=== PATIENT | female | born 1975 | race Caucasian/White ===

== ENCOUNTER 2021-07-11 10:49 | Observation (INO) ==
[2021-07-11] MEDS ORDERED: ONDANSETRON INJ 2 MG/ML 2 ML VIAL IV STA (11:17)
[2021-07-11] MEDS ORDERED: ACETAMINOPHEN 1,000 MG/100 ML VIAL IV STA (11:17)
[2021-07-11] MEDS ORDERED: SODIUM CHLORIDE 0.9% 1000ML 1,000 ML IV ONE (11:17)
--- NOTE | 2021-07-11 11:25 | Emergency Department Note ---
Impression & Plan Speech abnormality, Stroke-like symptoms, UTI (urinary tract infection) ED Provider Note NAME: RACHEL SCHERER AGE: 46 SEX: F : 1975 ARRIVES VIA: Ambulance INFORMANT: [Patient][ems] ED PROVIDER(S): [Hao Stearns MD] CHIEF COMPLAINT: Confusion HISTORY OF PRESENT ILLNESS: The patient is a 46-year-old female who presents by EMS for some confusion and difficulty finding her words. This started yesterday. She also noticed yesterday that she could not write properly. She is not slurring her speech, no one-sided weakness. She felt fatigue yesterday and some lower back pain as well as a mild headache. She went and had a Covid test done, this was negative. Today, she felt pretty similar but tried to go to work. 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 The patient has no history of previous similar symptoms. She has not had cough or congestion. No vomiting or diarrhea. No urinary complaints. She complains of very mild headache right now and some mild nausea as well as fatigue. REVIEW OF SYSTEMS: See HPI for pertinent positives and negatives. A total of ten systems were reviewed and were otherwise negative. PMHx/PSHx: See Below SOCIAL HISTORY: See Below. PHYSICAL EXAM: GENERAL: Patient is in no acute distress. HEENT: No acute trauma, normocephalic atraumatic, mucous membranes moist, no nasal congestion, no scleral icterus. NECK: No stridor, no adenopathy, no meningismus, trachea is midline. LUNGS: Clear to auscultation bilaterally, no wheeze, no rhonchi, breath sounds equal. HEART: Without murmurs gallops or rubs, regular rate and rhythm. ABDOMEN: Soft, nontender, bowel sounds positive, no hernias, no peritonitis. EXTREMITIES: No cyanosis or edema, full range of motion of all the joints without pain or difficulty, no signs for acute trauma. NEUROLOGIC: Awake and alert, no speech slur. She does seem to have a little bit of difficulty finding her words. No extremity drift or cerebellar dysfunction. Follows commands well. SKIN: No rash, no jaundice, no diaphoresis. DIFFERENTIAL DIAGNOSIS: Infection, dehydration, metabolic abnormality, medication reaction, drug abuse, liver or renal failure, COVID-19, hypo/hyperglycemia, electrolyte disturbance, anemia, hypoxia, cardiac sources, intracerebral event, toxicologic issues, stroke, TIA, as well as other pathologies. EMERGENCY DEPARTMENT COURSE/PROCEDURES: ECG: Indication was weakness. The ECG shows a normal sinus rhythm with a rate of 89. LVH is present. There is no ST elevation, no PVCs. There is some nonspecific ST change. The QTc is 428. Continuous Cardiac Monitoring: An order was placed for continuous cardiac monitoring. The monitor shows a rate of 93 with normal sinus rhythm. Critical Care Note: I have personally spent 41 minutes of critical care time in the direct management of this patient. This includes bedside care, interpretation of diagnostic studies, and testing, discussion with consultants, patient, and family members, and other required patient management activities. This 41 minutes is in excess of all separately billable procedures. MEDICAL DECISION MAKING: There is no leukocytosis or concerning anemia. There is a normal platelet count. No coagulopathy. No significant electrolyte abnormality or kidney failure. No concerning liver enzyme elevation. Ammonia level was not elevated. ECG shows a sinus rhythm, no acute ischemia. Cardiac enzyme testing x1 is not consistent with acute cardiac injury. Urinalysis returned consistent with infection. Urine tox was negative. Alcohol level was undetectable. Covid testing was negative. Chest film did not show pneumonia or CHF. Brain CT showed no acute bleed or mass-effect. CT angio of the brain and neck did not show stenosis or clot. On exam, the patient was having a hard time finding her words. No speech slur. No extremity deficit. The patient presented with strokelike symptoms. She was aggressively managed. A stroke work up was performed. The patient remains basically the same as when she arrived. At times, she speaks well, at times, she has a hard time finding her words. Her is now at the bedside and states that he noticed this trouble yesterday and then again today and this is quite unlike her. I did give the patient IV ceftriaxone to treat the UTI. I suppose this could be at least partly responsible for her presentation. She received IV saline for hydration, IV Zofran for nausea. She received IV Tylenol for her mild headache. The patient is aware of her findings, case management has been involved. The on-call hospitalist was consulted. Past Med/Surg History Medical History HTN (hypertension) As a child, currently not on any antihypertensives Migraines Surgical History History of tonsillectomy Family History (Updated 07/11/21 @ 15:27 by SHANTHI Hough) Aunt Uterine cancer Social History Smoking Status: Never smoker Feels Safe at Home: Yes Allergies Allergies Allergy/AdvReac Type Severity Reaction Status Date / Time No Known Allergies Allergy Unverified 07/11/21 12:31 Home Meds Home Medications Medication Instructions Recorded Confirmed No Known Home Medications 07/11/21 07/11/21 Results & Data (ED) Vital Signs Vital Signs - 24 hr 07/11/21 10:56 07/11/21 12:26 07/11/21 12:30 Temperature 37.0 C Temperature Source Oral Pulse Rate 93 H 79 80 Pulse Rate from SpO2 Sensor 78 80 Pulse Rhythm Regular Pulse Strength Normal Respiratory Rate 17 21 22 Respiratory Effort / Characteristics Non-Labored Respiratory Depth Normal Respiratory Pattern Regular Blood Pressure 136/85 131/77 131/77 Blood Pressure Mean 102 95 95 Blood Pressure Position Sitting Pulse Oximetry 99 97 98 Oxygen Delivery Method Room Air Room Air Room Air Oxygen Flow Rate 99 Sepsis Recent Fever Within 48 Hours No Sepsis New/Unexplained Change in Mental Status N/A Sepsis Action Taken by Nursing No Action Required 07/11/21 12:45 07/11/21 13:11 07/11/21 13:15 Temperature Temperature Source Pulse Rate 79 79 81 Pulse Rate from SpO2 Sensor 80 Pulse Rhythm Pulse Strength Respiratory Rate 23 22 25 H Respiratory Effort / Characteristics Respiratory Depth Respiratory Pattern Blood Pressure 117/65 124/76 Blood Pressure Mean 82 92 Blood Pressure Position Pulse Oximetry 99 99 100 Oxygen Delivery Method Room Air Room Air Room Air Oxygen Flow Rate Sepsis Recent Fever Within 48 Hours Sepsis New/Unexplained Change in Mental Status Sepsis Action Taken by Nursing 07/11/21 13:30 07/11/21 13:45 07/11/21 14:00 Temperature Temperature Source Pulse Rate 73 74 84 Pulse Rate from SpO2 Sensor 75 75 85 Pulse Rhythm Pulse Strength Respiratory Rate 22 15 26 H Respiratory Effort / Characteristics Respiratory Depth Respiratory Pattern Blood Pressure 117/70 Blood Pressure Mean 85 Blood Pressure Position Pulse Oximetry 99 99 98 Oxygen Delivery Method Room Air Room Air Room Air Oxygen Flow Rate Sepsis Recent Fever Within 48 Hours Sepsis New/Unexplained Change in Mental Status Sepsis Action Taken by Nursing 07/11/21 14:30 Temperature Temperature Source Pulse Rate 77 Pulse Rate from SpO2 Sensor 78 Pulse Rhythm Pulse Strength Respiratory Rate 19 Respiratory Effort / Characteristics Respiratory Depth Respiratory Pattern Blood Pressure 112/81 Blood Pressure Mean 91 Blood Pressure Position Pulse Oximetry 100 Oxygen Delivery Method Room Air Oxygen Flow Rate Sepsis Recent Fever Within 48 Hours Sepsis New/Unexplained Change in Mental Status Sepsis Action Taken by Assisted Medications Current Medication List: was personally reviewed by me Laboratory Data Attestation: I reviewed the patient's lab results. Result diagrams: 07/11/21 11:25 07/11/21 11:25 Lab Results 07/11/21 07/11/21 07/11/21 Range/Units 11:21 11:24 11:25 WBC (4.8-10.8) K/uL RBC (4.2-5.4) M/uL Hgb (12.0-16.0) g/dL Hct (37-47) % MCV (80-100) fL MCH (25-34) pg MCHC (32-36) g/dL RDW Std Deviation (36.4-46.3) fL RDW Coeff of Kamille (11.5-14.5) % Plt Count (130-400) K/uL MPV (7.4-10.4) fL Immature Gran % (Auto) % Neut % (Auto) % Lymph % (Auto) % [place] % (Auto) % Eos % (Auto) % Baso % (Auto) % Neut # (Auto) (1.4-6.5) K/uL Lymph # (Auto) (1.2-3.4) K/uL [place] # (Auto) (0.11-0.59) K/uL Eos # (Auto) (0-0.5) K/uL Baso # (Auto) (0-0.2) K/uL Immature Gran # (Auto) (0.00-0.02) K/uL PT (9.0-12.0) Seconds INR (0.9-1.1) APTT (21.0-31.0) Seconds PTT Ratio Sodium (136-145) mmol/L Potassium (3.5-5.1) mmol/L Chloride (98-107) mmol/L Carbon Dioxide (21-32) mmol/L Anion Gap (3-11) BUN (7-18) mg/dl Creatinine (0.6-1.2) mg/dl Est Cr Clr Drug Dosing ml/min Est GFR ( Amer) ml/min Est GFR (Non-Af Amer) ml/min BUN/Creatinine Ratio (10-20) Glucose (70-99) mg/dl POC Glucose 87 (70-99) mg/dl Lactate 0.6 (0.4-2.0) mmol/L Calcium (8.5-10.1) mg/dl Magnesium (1.8-2.4) mg/dl Total Bilirubin (0.2-1) mg/dl AST (15-37) U/L ALT (12-78) U/L Alkaline Phosphatase (45-117) U/L Ammonia (11-32) umol/L Troponin I (0-0.045) ng/ml Total Protein (6.4-8.2) gm/dl Albumin (3.4-5.0) gm/dl Globulin (2.5-4.0) gm/dl Albumin/Globulin Ratio (0.9-2) Urine Color Urine Appearance (Clear) Urine pH (4.5-7.5) Ur Specific [place] (1.000-1.030) Urine Protein (Negative) Urine Glucose (UA) (Negative) Urine Ketones (Negative) Urine Blood (Negative) Urine Nitrite (Negative) Urine Bilirubin (Negative) Urine Urobilinogen (Negative) Ur Leukocyte Esterase (Negative) Urine WBC (Auto) (0-5) /hpf Urine RBC (Auto) (0-4) /hpf U Hyaline Cast (Auto) (0-5) /lpf U Epithel Cells (Auto) (0-5) /lpf Urine Bacteria (Auto) (Negative) Granular Casts (0) /lpf Urine Opiates Screen (Neg) Ur Methadone, Qual (Neg) Urine Barbiturates (Neg) Ur Phencyclidine (PCP) (Neg) U Amphetamin/Meth Scrn (Neg) MDMA (Ecstasy) Screen (Neg) U Benzodiazepines Scrn (Neg) Ur Cocaine Metabolite (Neg) U Marijuana (THC) Screen (Neg) Ethyl Alcohol mg/dL < 3.0 (0-3) mg/dl COVID-19 Eval Order SARS-CoV-2 (PCR) (Negative) 07/11/21 07/11/21 07/11/21 Range/Units 11:25 11:25 11:25 WBC 8.07 (4.8-10.8) K/uL RBC 4.39 (4.2-5.4) M/uL Hgb 12.4 (12.0-16.0) g/dL Hct 37.6 (37-47) % MCV 85.6 (80-100) fL MCH 28.2 (25-34) pg MCHC 33.0 (32-36) g/dL RDW Std Deviation 42.6 (36.4-46.3) fL RDW Coeff of Kamille 13.5 (11.5-14.5) % Plt Count 387 (130-400) K/uL MPV 9.1 (7.4-10.4) fL Immature Gran % (Auto) 0.2 % Neut % (Auto) 70.5 % Lymph % (Auto) 22.1 % [place] % (Auto) 4.7 % Eos % (Auto) 2.4 % Baso % (Auto) 0.1 % Neut # (Auto) 5.69 (1.4-6.5) K/uL Lymph # (Auto) 1.78 (1.2-3.4) K/uL [place] # (Auto) 0.38 (0.11-0.59) K/uL Eos # (Auto) 0.19 (0-0.5) K/uL Baso # (Auto) 0.01 (0-0.2) K/uL Immature Gran # (Auto) 0.02 (0.00-0.02) K/uL PT 10.4 (9.0-12.0) Seconds INR 1.0 (0.9-1.1) APTT 26.1 (21.0-31.0) Seconds PTT Ratio 1.0 Sodium (136-145) mmol/L Potassium (3.5-5.1) mmol/L Chloride (98-107) mmol/L Carbon Dioxide (21-32) mmol/L Anion Gap (3-11) BUN (7-18) mg/dl Creatinine (0.6-1.2) mg/dl Est Cr Clr Drug Dosing ml/min Est GFR ( Amer) ml/min Est GFR (Non-Af Amer) ml/min BUN/Creatinine Ratio (10-20) Glucose (70-99) mg/dl POC Glucose (70-99) mg/dl Lactate (0.4-2.0) mmol/L Calcium (8.5-10.1) mg/dl Magnesium (1.8-2.4) mg/dl Total Bilirubin (0.2-1) mg/dl AST (15-37) U/L ALT (12-78) U/L Alkaline Phosphatase (45-117) U/L Ammonia 14.0 (11-32) umol/L Troponin I (0-0.045) ng/ml Total Protein (6.4-8.2) gm/dl Albumin (3.4-5.0) gm/dl Globulin (2.5-4.0) gm/dl Albumin/Globulin Ratio (0.9-2) Urine Color Urine Appearance (Clear) Urine pH (4.5-7.5) Ur Specific [place] (1.000-1.030) Urine Protein (Negative) Urine Glucose (UA) (Negative) Urine Ketones (Negative) Urine Blood (Negative) Urine Nitrite (Negative) Urine Bilirubin (Negative) Urine Urobilinogen (Negative) Ur Leukocyte Esterase (Negative) Urine WBC (Auto) (0-5) /hpf Urine RBC (Auto) (0-4) /hpf U Hyaline Cast (Auto) (0-5) /lpf U Epithel Cells (Auto) (0-5) /lpf Urine Bacteria (Auto) (Negative) Granular Casts (0) /lpf Urine Opiates Screen (Neg) Ur Methadone, Qual (Neg) Urine Barbiturates (Neg) Ur Phencyclidine (PCP) (Neg) U Amphetamin/Meth Scrn (Neg) MDMA (Ecstasy) Screen (Neg) U Benzodiazepines Scrn (Neg) Ur Cocaine Metabolite (Neg) U Marijuana (THC) Screen (Neg) Ethyl Alcohol mg/dL (0-3) mg/dl COVID-19 Eval Order SARS-CoV-2 (PCR) (Negative) 07/11/21 07/11/21 07/11/21 Range/Units 11:25 11:44 11:44 WBC (4.8-10.8) K/uL RBC (4.2-5.4) M/uL Hgb (12.0-16.0) g/dL Hct (37-47) % MCV (80-100) fL MCH (25-34) pg MCHC (32-36) g/dL RDW Std Deviation (36.4-46.3) fL RDW Coeff of Kamille (11.5-14.5) % Plt Count (130-400) K/uL MPV (7.4-10.4) fL Immature Gran % (Auto) % Neut % (Auto) % Lymph % (Auto) % [place] % (Auto) % Eos % (Auto) % Baso % (Auto) % Neut # (Auto) (1.4-6.5) K/uL Lymph # (Auto) (1.2-3.4) K/uL [place] # (Auto) (0.11-0.59) K/uL Eos # (Auto) (0-0.5) K/uL Baso # (Auto) (0-0.2) K/uL Immature Gran # (Auto) (0.00-0.02) K/uL PT (9.0-12.0) Seconds INR (0.9-1.1) APTT (21.0-31.0) Seconds PTT Ratio Sodium 139 (136-145) mmol/L Potassium 3.6 (3.5-5.1) mmol/L Chloride 109 H (98-107) mmol/L Carbon Dioxide 25 (21-32) mmol/L Anion Gap 5.0 (3-11) BUN 8 (7-18) mg/dl Creatinine 0.60 (0.6-1.2) mg/dl Est Cr Clr Drug Dosing 185.0 ml/min Est GFR ( Amer) 128.5 ml/min Est GFR (Non-Af Amer) 110.9 ml/min BUN/Creatinine Ratio 12.9 (10-20) Glucose 88 (70-99) mg/dl POC Glucose (70-99) mg/dl Lactate (0.4-2.0) mmol/L Calcium 8.8 (8.5-10.1) mg/dl Magnesium 2.0 (1.8-2.4) mg/dl Total Bilirubin 0.4 (0.2-1) mg/dl AST 16 (15-37) U/L ALT 17 (12-78) U/L Alkaline Phosphatase 84 (45-117) U/L Ammonia (11-32) umol/L Troponin I < 0.015 (0-0.045) ng/ml Total Protein 7.9 (6.4-8.2) gm/dl Albumin 3.3 L (3.4-5.0) gm/dl Globulin 4.6 H (2.5-4.0) gm/dl Albumin/Globulin Ratio 0.7 L (0.9-2) Urine Color Dark Yellow Urine Appearance Cloudy A (Clear) Urine pH 5.5 (4.5-7.5) Ur Specific [place] 1.033 H (1.000-1.030) Urine Protein Trace H (Negative) Urine Glucose (UA) Negative (Negative) Urine Ketones 1+ H (Negative) Urine Blood Negative (Negative) Urine Nitrite Negative (Negative) Urine Bilirubin 1+ H (Negative) Urine Urobilinogen Negative (Negative) Ur Leukocyte Esterase 2+ H (Negative) Urine WBC (Auto) >30 H (0-5) /hpf Urine RBC (Auto) 0-4 (0-4) /hpf U Hyaline Cast (Auto) 10-30 H (0-5) /lpf U Epithel Cells (Auto) >30 H (0-5) /lpf Urine Bacteria (Auto) 3+ H (Negative) Granular Casts 1-5 H (0) /lpf Urine Opiates Screen (Neg) Ur Methadone, Qual (Neg) Urine Barbiturates (Neg) Ur Phencyclidine (PCP) (Neg) U Amphetamin/Meth Scrn (Neg) MDMA (Ecstasy) Screen (Neg) U Benzodiazepines Scrn (Neg) Ur Cocaine Metabolite (Neg) U Marijuana (THC) Screen (Neg) Ethyl Alcohol mg/dL (0-3) mg/dl COVID-19 Eval Order Covid19 at [facility] SARS-CoV-2 (PCR) (Negative) 07/11/21 07/11/21 Range/Units 11:44 11:44 WBC (4.8-10.8) K/uL RBC (4.2-5.4) M/uL Hgb (12.0-16.0) g/dL Hct (37-47) % MCV (80-100) fL MCH (25-34) pg MCHC (32-36) g/dL RDW Std Deviation (36.4-46.3) fL RDW Coeff of Kamille (11.5-14.5) % Plt Count (130-400) K/uL MPV (7.4-10.4) fL Immature Gran % (Auto) % Neut % (Auto) % Lymph % (Auto) % [place] % (Auto) % Eos % (Auto) % Baso % (Auto) % Neut # (Auto) (1.4-6.5) K/uL Lymph # (Auto) (1.2-3.4) K/uL [place] # (Auto) (0.11-0.59) K/uL Eos # (Auto) (0-0.5) K/uL Baso # (Auto) (0-0.2) K/uL Immature Gran # (Auto) (0.00-0.02) K/uL PT (9.0-12.0) Seconds INR (0.9-1.1) APTT (21.0-31.0) Seconds PTT Ratio Sodium (136-145) mmol/L Potassium (3.5-5.1) mmol/L Chloride (98-107) mmol/L Carbon Dioxide (21-32) mmol/L Anion Gap (3-11) BUN (7-18) mg/dl Creatinine (0.6-1.2) mg/dl Est Cr Clr Drug Dosing ml/min Est GFR ( Amer) ml/min Est GFR (Non-Af Amer) ml/min BUN/Creatinine Ratio (10-20) Glucose (70-99) mg/dl POC Glucose (70-99) mg/dl Lactate (0.4-2.0) mmol/L Calcium (8.5-10.1) mg/dl Magnesium (1.8-2.4) mg/dl Total Bilirubin (0.2-1) mg/dl AST (15-37) U/L ALT (12-78) U/L Alkaline Phosphatase (45-117) U/L Ammonia (11-32) umol/L Troponin I (0-0.045) ng/ml Total Protein (6.4-8.2) gm/dl Albumin (3.4-5.0) gm/dl Globulin (2.5-4.0) gm/dl Albumin/Globulin Ratio (0.9-2) Urine Color Urine Appearance (Clear) Urine pH (4.5-7.5) Ur Specific [place] (1.000-1.030) Urine Protein (Negative) Urine Glucose (UA) (Negative) Urine Ketones (Negative) Urine Blood (Negative) Urine Nitrite (Negative) Urine Bilirubin (Negative) Urine Urobilinogen (Negative) Ur Leukocyte Esterase (Negative) Urine WBC (Auto) (0-5) /hpf Urine RBC (Auto) (0-4) /hpf U Hyaline Cast (Auto) (0-5) /lpf U Epithel Cells (Auto) (0-5) /lpf Urine Bacteria (Auto) (Negative) Granular Casts (0) /lpf Urine Opiates Screen Neg (Neg) Ur Methadone, Qual Neg (Neg) Urine Barbiturates Neg (Neg) Ur Phencyclidine (PCP) Neg (Neg) U Amphetamin/Meth Scrn Neg (Neg) MDMA (Ecstasy) Screen Neg (Neg) U Benzodiazepines Scrn Neg (Neg) Ur Cocaine Metabolite Neg (Neg) U Marijuana (THC) Screen Neg (Neg) Ethyl Alcohol mg/dL (0-3) mg/dl COVID-19 Eval Order SARS-CoV-2 (PCR) NEGATIVE (Negative) Administered Medications Discontinued Medications Aspirin (Aspirin Chew 324 Mg) 324 mg PO NOW STA Stop: 07/11/21 14:57 Last Admin: 07/11/21 15:10 Dose: 324 mg Documented by: [id number] Sodium Chloride (Nss 1000ml) 1,000 mls @ 999 mls/hr IV .[id number] ONE Stop: 07/11/21 12:17 Last Infusion: 07/11/21 12:40 Dose: 0 mls/hr Documented by: [id number] Admin: 07/11/21 11:39 Dose: 999 mls/hr Documented by: [id number] Acetaminophen (Ofirmev) 1,000 mg in 100 mls @ 400 mls/hr IV NOW STA Stop: 07/11/21 11:31 Last Infusion: 07/11/21 12:29 Dose: 0 mls/hr Documented by: [id number] Admin: 07/11/21 11:40 Dose: 400 mls/hr Documented by: [id number] Ceftriaxone Sodium (Rocephin) 2,000 mg in 70 mls @ 140 mls/hr IV NOW STA Stop: 07/11/21 13:09 Last Infusion: 07/11/21 13:16 Dose: 0 mls/hr Documented by: [id number] Admin: 07/11/21 12:53 Dose: 140 mls/hr Documented by: [id number] Ioversol (Optiray 320 125ml) 120 ml IV ONCE ONE Stop: 07/11/21 13:03 Last Admin: 07/11/21 13:02 Dose: 120 ml Documented by: [id number] Ondansetron HCl (Ondansetron Inj 2 Mg/Ml 2 Ml Vial) 4 mg IV NOW STA Stop: 07/11/21 11:18 Last Admin: 07/11/21 11:41 Dose: 4 mg Documented by: [id number] Imaging Data Radiologist's Impression: Chest X-Ray 07/11/21 11:20 XR chest 1V portable HISTORY: 46 years-old Female Stroke Like Symptoms acute strokelike symptoms COMPARISON: None TECHNIQUE: Portable AP view of the chest FINDINGS: The cardiomediastinal and hilar silhouettes are within normal limits. No pneumothorax, pleural effusion, airspace consolidation or overt pulmonary edema. No acute fracture. IMPRESSION: No acute process. ACT 112: Negative or not required by law. The above report was generated using voice recognition software. It may contain grammatical, syntax or spelling errors. Electronically signed by: Clark Monique M.D. 07/11/2021 12:[address] 07/11/21 11:20 CT head/brain wo con CLINICAL HISTORY: 46 years-old Female with Stroke Like Symptoms. Acute s trokelike symptoms TECHNIQUE: Multiple axial CT images of the head were obtained without contrast. A dose lowering technique was utilized adhering to the principles of ALARA. COMPARISON: CTA head and neck of same day. FINDINGS: No acute intracranial hemorrhage, midline shift, intracranial mass, hydrocephalus, territorial ischemia or abnormal extra-axial collection. The calvarium is intact. The paranasal sinuses, mastoid air cells, and middle ear cavities are clear. IMPRESSION: No acute intracranial abnormality. ACT 112: Negative or not required by law. The above report was generated using voice recognition software. It may contain grammatical, syntax or spelling errors. Electronically signed by: Clark Monique M.D. 07/11/2021 1:17 PM Head CTA 07/11/21 11:20 CT angio neck with con, CT angio head w con CLINICAL HISTORY: Stroke Like Symptoms TECHNIQUE: CT angiography of the head and neck was performed following intravenous administration of iodinated contrast. Automated dose lowering techniques and/or adjustment according to patient size were utilized for this examination. Comparison: Comparison is made to CT head 07/11/2021 FINDINGS: CTA Neck: A 3 vessel aortic arch is shown. There is no significant atherosclerotic plaque in the aortic arch or the origins of the innominate, left common carotid, and left subclavian arteries. There is no atherosclerotic plaque at the origins of the vertebral arteries. The common carotid, external carotid, cervical segments of the internal carotid arteries, and the cervical segments of the vertebral arteries are patent. There is no hemodynamically significant diameter stenosis or dissection present. The right vertebral artery is dominant. The thyroid is prominent without suspicious nodules noted. The lungs are clear. CTA Head: The anterior and posterior cerebral circulations are patent. No hemodynamically significant stenosis, aneurysm, dissection, or arteriovenous malformation is shown. Atherosclerotic disease is noted. IMPRESSION: 1. No occlusion, hemodynamically significant stenosis, aneurysm, dissection, or arteriovenous malformation in the major intracranial arteries. 2. No occlusion, hemodynamically significant stenosis, or dissection in the major cervical arteries. Assessment of stenosis of the internal carotid arteries is based on NASCET criteria. ACT 112: Negative or not required by law. Electronically signed by: Reginald Hull M.D. 07/11/2021 1:18 PM Neck CTA 07/11/21 11:20 CT angio neck with con, CT angio head w con CLINICAL HISTORY: Stroke Like Symptoms TECHNIQUE: CT angiography of the head and neck was performed following intravenous administration of iodinated contrast. Automated dose lowering techniques and/or adjustment according to patient size were utilized for this examination. Comparison: Comparison is made to CT head 07/11/2021 FINDINGS: CTA Neck: A 3 vessel aortic arch is shown. There is no significant atherosclerotic plaque in the aortic arch or the origins of the innominate, left common carotid, and left subclavian arteries. There is no atherosclerotic plaque at the origins of the vertebral arteries. The common carotid, external carotid, cervical segments of the internal carotid arteries, and the cervical se gments of the vertebral arteries are patent. There is no hemodynamically significant diameter stenosis or dissection present. The right vertebral artery is dominant. The thyroid is prominent without suspicious nodules noted. The lungs are clear. CTA Head: The anterior and posterior cerebral circulations are patent. No hemodynamically significant stenosis, aneurysm, dissection, or arteriovenous malformation is shown. Atherosclerotic disease is noted. IMPRESSION: 1. No occlusion, hemodynamically significant stenosis, aneurysm, dissection, or arteriovenous malformation in the major intracranial arteries. 2. No occlusion, hemodynamically significant stenosis, or dissection in the major cervical arteries. Assessment of stenosis of the internal carotid arteries is based on NASCET crite madhuri. ACT 112: Negative or not required by law. Electronically signed by: Reginald Hull M.D. 07/11/2021 1:18 PM Discharge Plan Visit Data Chief Complaint: Confusion Stated Complaint: CONFUSION ED Provider: Hao Stearns Discharge Problem: Speech abnormality, Stroke-like symptoms, UTI (urinary tract infection) Patient Disposition: Admitted As Inpatient Condition: Fair
[2021-07-11 11:40] LABS: Basophils # (auto) 0.01 K/uL (0-0.2); Basophils % (auto) 0.1 %; Eosinophils # (auto) 0.19 K/uL (0-0.5); Eosinophils % (auto) 2.4 %; Hematocrit (blood only) 37.6 % (37-47); Hemoglobin 12.4 g/dL (12.0-16.0); Immature Granulocytes # (auto) 0.02 K/uL (0.00-0.02); Immature Granulocytes % (auto) 0.2 %; Lymphocytes # (auto) 1.78 K/uL (1.2-3.4); Lymphocytes % (auto) 22.1 %; Mean Corpuscular Hemoglobin 28.2 pg (25-34); Mean Corpuscular Volume 85.6 fL (80-100); Mean Platelet Volume 9.1 fL (7.4-10.4); Monocytes # (auto) 0.38 K/uL (0.11-0.59); Monocytes % (auto) 4.7 %; Neutrophils # (auto) 5.69 K/uL (1.4-6.5); Neutrophils % (auto) 70.5 %; Platelet Count 387 K/uL (130-400); RDW Coefficient of Variation 13.5 % (11.5-14.5); RDW Standard Deviation 42.6 fL (36.4-46.3); Red Blood Count 4.39 M/uL (4.2-5.4); White Blood Count 8.07 K/uL (4.8-10.8)
[2021-07-11 11:51] LABS: Partial Thromboplastin Time 26.1 Seconds (21.0-31.0); Prothrombin Time 10.4 Seconds (9.0-12.0)
[2021-07-11 12:00] LABS: Appearance Urine Cloudy (Clear); Bacteria Urine Automated 3+ (Negative); Blood Urine Negative (Negative); Color Urine Dark Yellow; Epithelial Cell Urine Auto >30 /lpf (0-5); Glucose Urine UA Negative (Negative); Ketones Urine 1+ (Negative); Leukocyte Esterase Urine 2+ (Negative); Nitrite Urine Negative (Negative); Protein Urine Trace (Negative); Specific Gravity Urine 1.033 (1.000-1.030); Urobilinogen Urine Negative (Negative); WBC Urine Automated >30 /hpf (0-5); pH Urine 5.5 (4.5-7.5)
[2021-07-11 12:02] LABS: Bilirubin Urine 1+ (Negative)
[2021-07-11 12:06] LABS: Alanine Aminotransferase 17 U/L (12-78); Albumin Level 3.3 gm/dl (3.4-5.0); Aspartate Aminotransferase 16 U/L (15-37); BUN Creatinine Ratio 12.9 (10-20); Blood Urea Nitrogen 8 mg/dl (7-18); Calcium 8.8 mg/dl (8.5-10.1); Carbon Dioxide 25 mmol/L (21-32); Chloride 109 mmol/L (98-107); Est GFR (African American) 128.5 ml/min; Est GFR (Non-African American) 110.9 ml/min; Glucose 88 mg/dl (70-99); Potassium 3.6 mmol/L (3.5-5.1); Sodium 139 mmol/L (136-145)
[2021-07-11 12:11] LABS: Albumin Globulin Ratio 0.7 (0.9-2); Alkaline Phosphatase 84 U/L (45-117); Bilirubin,Total 0.4 mg/dl (0.2-1); Globulin 4.6 gm/dl (2.5-4.0); Total Protein 7.9 gm/dl (6.4-8.2); Troponin I < 0.015 ng/ml (0-0.045)
[2021-07-11 12:17] LABS: RBC Urine Automated 0-4 /hpf (0-4)
--- NOTE | 2021-07-11 12:21 | XRay Report ---
XR chest 1V portable HISTORY: 46 years-old Female Stroke Like Symptoms acute strokelike symptoms COMPARISON: None TECHNIQUE: Portable AP view of the chest FINDINGS: The cardiomediastinal and hilar silhouettes are within normal limits. No pneumothorax, pleural effusi on, airspace consolidation or overt pulmonary edema. No acute fracture. IMPRESSION: No acute process. ACT 112: Negative or not required by law. The above report was generated using voice recognition software. It may contain grammatical, syntax o r spelling errors. Electronically signed by: Clark Monique M.D. 07/11/2021 12:20 PM
[2021-07-11 12:22] LABS: Amphetamines+Metham, Urine Neg (Neg); Barbiturates, Urine Neg (Neg); Benzodiazepine, Urine Neg (Neg); Cocaine, Urine Neg (Neg); MDMA (Ecstacy), Urine Neg (Neg); Methadone, Urine Neg (Neg); Opiate, Urine Neg (Neg); Phencyclidine, Urine Neg (Neg)
[2021-07-11] MEDS ORDERED: cefTRIAXone SODIUM 2,000 MG/70 ML BAG IV STA (12:40)
[2021-07-11] MEDS ORDERED: OPTIRAY 320 125ml IV ONE (13:02)
--- NOTE | 2021-07-11 13:18 | CT Scan Report ---
CT head/brain wo con CLINICAL HISTORY: 46 years-old Female with Stroke Like Symptoms. Acute strokelike symptoms TECHNIQUE: Multiple axial CT images of the head were obtained without contrast. A dose lowering tech nique was utilized adhering to the principles of ALARA. COMPARISON: CTA head and neck of same day. FINDINGS: No acute intracranial hemorrhage, midline shift, intracranial mass, hydrocephalus, territorial ischem ia or abnormal extra-axial collection. The calvarium is intact. The paranasal sinuses, mastoid air cells, and middle ear cavities are clear . IMPRESSION: No acute intracranial abnormality. ACT 112: Negative or not required by law. The above report was generated using voice recognition software. It may contain grammatical, syntax o r spelling errors. Electronically signed by: Clark Monique M.D. 07/11/2021 1:17 PM
--- NOTE | 2021-07-11 13:20 | CT Scan Report ---
CT angio neck with con, CT angio head w con CLINICAL HISTORY: Stroke Like Symptoms TECHNIQUE: CT angiography of the head and neck was performed following intravenous administration of iodinated contrast. Automated dose lowering techniques and/or adjustment according to patient size we re utilized for this examination. Comparison: Comparison is made to CT head 07/11/2021 FINDINGS: CTA Neck: A 3 vessel aortic arch is shown. There is no significant atherosclerotic plaque in the aor tic arch or the origins of the innominate, left common carotid, and left subclavian arteries. There is no atherosclerotic plaque at the origins of the vertebral arteries. The common carotid, external c arotid, cervical segments of the internal carotid arteries, and the cervical segments of the vertebra l arteries are patent. There is no hemodynamically significant diameter stenosis or dissection prese nt. The right vertebral artery is dominant. The thyroid is prominent without suspicious nodules noted . The lungs are clear. CTA Head: The anterior and posterior cerebral circulations are patent. No hemodynamically significan t stenosis, aneurysm, dissection, or arteriovenous malformation is shown. Atherosclerotic disease is noted. IMPRESSION: 1. No occlusion, hemodynamically significant stenosis, aneurysm, dissection, or arteriovenous malfor mation in the major intracranial arteries. 2. No occlusion, hemodynamically significant stenosis, or dissection in the major cervical arteries. Assessment of stenosis of the internal carotid arteries is based on NASCET criteria. ACT 112: Negative or not required by law. Electronically signed by: Reginald Hull M.D. 07/11/2021 1:18 PM
[2021-07-11] MEDS ORDERED: ASPIRIN CHEW 324 MG PO STA (14:56)
--- NOTE | 2021-07-11 15:27 | History & Physical Report ---
Date of Service July 11, 2021 Assessment & Plan (1) Expressive aphasia: Plan: -Admit to telemetry -Patient presenting from home with reports of difficulty speaking and writing sentences, symptoms began yesterday -In the ED, head CT, head and neck CTAs unremarkable -UA is suggestive of UTI however patient's presenting symptoms would be unusual for a UTI for someone her age -Brain MRI, echo -Full dose aspirin now, followed by ASA 81 mg daily; consider statin pending brain MRI results -May be due to complex migraine -Neurology consult, case discussed with Susana Tinoco PA-C (2) UTI (urinary tract infection): Plan: -Patient denies any urinary symptoms, may be asymptomatic bacteriuria -Afebrile, no leukocytosis -S/p ceftriaxone in the ED, will continue, follow culture (3) DVT prophylaxis: Plan: -SCDs History of Present Illness Chief Complaint: Difficulty speaking Primary Care Provider: NO PCP 46-year-old female with PMH migraines and other problems listed below who presents the ED for evaluation of difficulty speaking. History is somewhat difficult to obtain from patient due to current expressive aphasia. Symptoms began last evening when patient had difficulty finding her words. She also noted that she was having trouble writing out sentences. 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 Patient reports having a headache along the left side of her head. Reports this is a typical migraine pain for her. She denies blurred vision. No lightheadedness, dizziness, diaphoresis, syncopal events. She denies any unilateral weakness, numbness, tingling, facial droop. No fevers or chills. Denies abdominal pain, nausea, vomiting, diarrhea. No urinary symptoms. In the ED, head CT, head and neck CTAs are unremarkable. Labs unremarkable. UA is suggestive of UTI. Patient was given IV Tylenol, IV ceftriaxone, IV Zofran, IVF. Allergies Allergy/AdvReac Type Severity Reaction Status Date / Time No Known Allergies Allergy Unverified 07/11/21 12:31 Home Medications Medication Instructions Recorded Confirmed Type No Known Home Medications 07/11/21 07/11/21 History Past Med/Surg History Medical History HTN (hypertension) As a child, currently not on any antihypertensives Migraines Surgical History History of tonsillectomy Family History (Updated 07/11/21 @ 15:27 by SHANTHI Hough) Aunt Uterine cancer Social History Smoking Status: Unknown if ever smoked Hx Alcohol Use: No Hx Substance Use: No Beliefs That Will Affect Care: None Current Living Situation: Family Other Information That Helps Us Care for You: No Feels Safe at Home: Yes Safety Concerns: Feels Safe At This Time Assistive Devices: Glasses Review of Systems Review of Systems: ROS per HPI, all other systems reviewed and negative Physical Exam Constitutional: WD/WN, vitals as above Eyes: PERRL, conjunctivae normal, anicteric sclerae ENMT: external ear and nose normal, oropharynx normal Respiratory: normal respiratory effort, lungs clear to auscultation Cardiovascular: Rate/Rhythm: regular rate and regular rhythm Vessels: normal peripheral pulses Extremities: no edema Gastrointestinal (Abdomen): normal bowel sounds, soft, nontender, no hepatosplenomegaly Musculoskeletal: no cyanosis or clubbing, extremities motor strength 5/5 Skin: no rashes, warm and dry Neurologic: moves all extremities (Strength strong and equal throughout all extremities) and awake Speech / Cognition: + expressive aphasia Cranial Nerves: PERRL, EOM intact bilaterally and normal facial strength Coordination: + abnormal [id number] test (Mild difficulty with left upper extremity) Psychiatric: A+Ox3, euthymic affect Results & Data Results & Data ([facility]) Vital Signs (Past 12 Hours) Vital Signs Temp Pulse Resp BP Pulse Ox 07/11/21 14:30 77 19 112/81 100 07/11/21 14:00 84 26 H 98 07/11/21 13:45 74 15 99 07/11/21 13:30 73 22 117/70 99 07/11/21 13:15 81 25 H 124/76 100 07/11/21 13:11 79 22 117/65 99 07/11/21 12:45 79 23 99 07/11/21 12:30 80 22 131/77 98 07/11/21 12:26 79 21 131/77 97 07/11/21 10:56 37.0 C 93 H 17 136/85 99 Laboratory Results Short CBC 07/11/21 Range/Units 11:25 WBC 8.07 (4.8-10.8) K/uL Hgb 12.4 (12.0-16.0) g/dL Hct 37.6 (37-47) % Plt Count 387 (130-400) K/uL BMP 07/11/21 11:25 Sodium 139 Potassium 3.6 Chloride 109 H Carbon Dioxide 25 BUN 8 Creatinine 0.60 Glucose 88 Calcium 8.8 Cardiac Enzymes 07/11/21 Range/Units 11:25 Troponin I < 0.015 (0-0.045) ng/ml Liver Function 07/11/21 Range/Units 11:25 Total Bilirubin 0.4 (0.2-1) mg/dl AST 16 (15-37) U/L ALT 17 (12-78) U/L Alkaline Phosphatase 84 (45-117) U/L Albumin 3.3 L (3.4-5.0) gm/dl Urine 07/11/21 Range/Units 11:44 Urine Color Dark Yellow Urine Appearance Cloudy A (Clear) Urine pH 5.5 (4.5-7.5) Ur Specific [place] 1.033 H (1.000-1.030) Urine Protein Trace H (Negative) Urine Glucose (UA) Negative (Negative) Diagnostic Findings Chest X-Ray 07/11/21 11:20 XR chest 1V portable HISTORY: 46 years-old Female Stroke Like Symptoms acute strokelike symptoms COMPARISON: None TECHNIQUE: Portable AP view of the chest FINDINGS: The cardiomediastinal and hilar silhouettes are within normal limits. No pneumothorax, pleural effusion, airspace consolidation or overt pulmonary edema. No acute fracture. IMPRESSION: No acute process. ACT 112: Negative or not required by law. The above report was generated using voice recognition software. It may contain grammatical, syntax or spelling errors. Electronically signed by: Clark Monique M.D. 07/11/2021 12:[address] 07/11/21 11:20 CT head/brain wo con CLINICAL HISTORY: 46 years-old Female with Stroke Like Symptoms. Acute strokelike symptoms TECHNIQUE: Multiple axial CT images of the head were obtained without contrast. A dose lowering technique was utilized adhering to the principles of ALARA. COMPARISON: CTA head and neck of same day. FINDINGS: No acute intracranial hemorrhage, midline shift, intracranial mass, hydrocephalus, territorial ischemia or abnormal extra-axial collection. The calvarium is intact. The paranasal sinuses, mastoid air cells, and middle ear cavities are clear. IMPRESSION: No acute intracranial abnormality. ACT 112: Negative or not required by law. The above report was generated using voice recognition software. It may contain grammatical, syntax or spelling errors. Electronically signed by: Clark Monique M.D. 07/11/2021 1:17 PM Head CTA 07/11/21 11:20 CT angio neck with con, CT angio head w con CLINICAL HISTORY: Stroke Like Symptoms TECHNIQUE: CT angiography of the head and neck was performed following intravenous administration of iodinated contrast. Automated dose lowering techniques and/or adjustment according to patient size were utilized for this examination. Comparison: Comparison is made to CT head 07/11/2021 FINDINGS: CTA Neck: A 3 vessel aortic arch is shown. There is no significant atherosclerotic plaque in the aortic arch or the origins of the innominate, left common carotid, and left subclavian arteries. There is no atherosclerotic plaque at the origins of the vertebral arteries. The common carotid, external carotid, cervical segments of the internal carotid arteries, and the cervical segments of the vertebral arteries are patent. There is no hemodynamically significant diameter stenosis or dissection present. The right vertebral artery is dominant. The thyroid is prominent without suspicious nodules noted. The lungs are clear. CTA Head: The anterior and posterior cerebral circulations are patent. No hemodynamically significant stenosis, aneurysm, dissection, or arteriovenous malformation is shown. Atherosclerotic disease is noted. IMPRESSION: 1. No occlusion, hemodynamically significant stenosis, aneurysm, dissection, or arteriovenous malformation in the major intracranial arteries. 2. No occlusion, hemodynamically significant stenosis, or dissection in the major cervical arteries. Assessment of stenosis of the internal carotid arteries is based on NASCET criteria. ACT 112: Negative or not required by law. Electronically signed by: Reginald Hull M.D. 07/11/2021 1:18 PM Neck CTA 07/11/21 11:20 CT angio neck with con, CT angio head w con CLINICAL HISTORY: Stroke Like Symptoms TECHNIQUE: CT angiography of the head and neck was performed following intravenous administration of iodinated contrast. Automated dose lowering techniques and/or adjustment according to patient size were utilized for this examination. Comparison: Comparison is made to CT head 07/11/2021 FINDINGS: CTA Neck: A 3 vessel aortic arch is shown. There is no significant atherosclerotic plaque in the aortic arch or the origins of the innominate, left common carotid, and left subclavian arteries. There is no atherosclerotic plaque at the origins of the vertebral arteries. The common carotid, external carotid, cervical segments of the internal carotid arteries, and the cervical segments of the vertebral arteries are patent. There is no hemodynamically significant diameter stenosis or dissection present. The right vertebral artery is dominant. The thyroid is prominent without suspicious nodules noted. The lungs are clear. CTA Head: The anterior and posterior cerebral circulations are patent. No hemodynamically significant stenosis, aneurysm, dissection, or arteriovenous malformation is shown. Atherosclerotic disease is noted. IMPRESSION: 1. No occlusion, hemodynamically significant stenosis, aneurysm, dissection, or arteriovenous malformation in the major intracranial arteries. 2. No occlusion, hemodynamically significant stenosis, or dissection in the major cervical arteries. Assessment of stenosis of the internal carotid arteries is based on NASCET criteria. ACT 112: Negative or not required by law. Electronically signed by: Reginald Hull M.D. 07/11/2021 1:18 PM Code Status & VTE Plan VTE Prophylaxis Plan VTE Prophylaxis will be ordered: Yes Supervising Physician Co-Signing Physician Notes Pt seen and examined by me, care coordinated with Chema MAKI, pls refer to her note above for further detail. 46-year-old female with hx of migraines, GERD who presents for evaluation of dif ficulty speaking/ word finding difficulty. Symptoms began last evening when patient had difficulty finding her words. 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 Patient reports having a headache along the left side of her head. Reports this is a typical migraine pain for her. She denies blurred vision. No lightheadedness, dizziness, diaphoresis, syncopal events. She denies any unilateral weakness, numbness, tingling, facial droop. No fevers or chills. Denies abdominal pain, nausea, vomiting, diarrhea. No urinary symptoms. In the ED, head CT, head and neck CTAs are unremarkable. Labs unremarkable. UA is suggestive of UTI. Patient was given IV Tylenol, IV ceftriaxone, IV Zofran, IVF. Pt is currently laying in bed in [facility]. Tells me that they recently moved from [place] (her is with ) and she is originally [place]. Reports taking medication for migraine but can't think of the name right now, however she knows where she keeps her meds and so will call her to find it and call us with the name. He was initially in the ED but pt tells me she asked him to go home to watch their children. Discussed MRI, and some other labs we plan to obtain, and neurology consult. Also discussed to have her set up w/ PCP which she is in agreement with. Pt is awake alert and oriented. She can provide history but continues to have word finding difficulty. Lungs are CTAB, heart sounds regular. Abdomen soft, obese, nontender, nondistended. Pt is moving all 4 extremities w/o difficulty. No sensory loss noted. CN II-XII seem intact. Skin is warm, dry. Will obtain brain MRI, B12 level, B1 level, urine tox. Neurology was also contacted. Сергей Hirsch MD
--- NOTE | 2021-07-11 16:42 | XRay Report ---
KUB CLINICAL HISTORY: MRI clearance. FINDINGS: 4 AP supine abdominal radiographs are obtained. No prior studies are available for comparis on at the time of dictation. An indeterminant catheter projects over the left upper quadrant. Cholecy stectomy clips are noted in the right upper quadrant. No additional metallic foreign body is identifi ed. Excreted IV contrast is present within the renal collecting systems and bladder. There is no jamar l obstruction. Bone islands are suggested in the right iliac wing and sacrum.. IMPRESSION: 1. No bowel obstruction. 2. An indeterminant catheter projects at the left upper quadrant. Clinical correlation will be requir ed. 3. No additional radiodense/metallic foreign body is identified. Electronically signed by: Hao Nguyen M.D. 07/11/2021 4:40 PM
[2021-07-11] MEDS ORDERED: PHARMACIST DISCHARGE MED REC CONSULT PRN (17:45)
[2021-07-11] MEDS ORDERED: ACETAMINOPHEN 325 MG TAB PO PRN (17:45)
--- NOTE | 2021-07-11 17:52 | Magnetic Resonance Report ---
MR brain wo con CLINICAL HISTORY: expressive aphasia TECHNIQUE: Multiplanar and multisequence MR images of the brain were obtained without intravenous con trast. Comparison: None available at the time of this dictation. FINDINGS: No abnormal restricted diffusion is identified. The white matter is unremarkable. The ventricular sys tem is normal in appearance. Hemorrhage No extra axial fluid collections are seen. There are no mellissa s, mass effect, or midline shift. The corpus callosum, pituitary gland, and cerebellar tonsils appea r grossly unremarkable. Flow voids of the major intracranial arterial vessels are identified. The imaged portions of the para nasal sinuses, mastoid air cells, and orbits are unremarkable. IMPRESSION: No acute abnormalities. ACT 112: Negative or not required by law. Electronically signed by: Reginald Hull M.D. 07/11/2021 5:51 PM
--- NOTE | 2021-07-11 18:12 | Electrocardiogram Report ---
Test Reason : Blood Pressure : / mmHG Vent. Rate : 089 BPM Atrial Rate : 089 BPM P-R Int : 178 ms QRS Dur : 076 ms QT Int : 352 ms P-R-T Axes : 026 -03 006 degrees QTc Int : 428 ms Normal sinus rhythm Minimal voltage criteria for LVH, may be normal variant Nonspecific T wave abnormality Abnormal ECG No previous ECGs available Confirmed by Wang Marie ([id number]) on 07/11/2021 6:12:27 PM Referred By: Confirmed By:Shan Marie
[2021-07-12] MEDS ORDERED: ASPIRIN 81 MG ECTAB PO SCH (09:00)
[2021-07-12] MEDS ORDERED: cefTRIAXone SODIUM 2,000 MG in DEXTROSE 5% 50 ML IV SCH (12:00)
--- NOTE | 2021-07-22 18:38 | Discharge Summary ---
Date of Service July 12, 2021 Admission HPI Per Admitting Provider 46-year-old female with PMH migraines and other problems listed below who presents the ED for evaluation of difficulty speaking. History is somewhat difficult to obtain from patient due to current expressive aphasia. Symptoms began last evening when patient had difficulty finding her words. She also noted that she was having trouble writing out sentences. 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 Patient reports having a headache mike ng the left side of her head. Reports this is a typical migraine pain for her. She denies blurred vision. No lightheadedness, dizziness, diaphoresis, syncopal events. She denies any unilateral weakness, numbness, tingling, facial droop. No fevers or chills. Denies abdominal pain, nausea, vomiting, diarrhea. No urinary symptoms. In the ED, head CT, head and neck CTAs are unremarkable. Labs unremarkable. UA is suggestive of UTI. Patient was given IV Tylenol, IV ceftriaxone, IV Zofran, IVF. Admission Exam Per Admitting Provider Constitutional: WD/WN, vitals as above Eyes: PERRL, conjunctivae normal, anicteric sclerae ENMT: external ear and nose normal, oropharynx normal Respiratory: normal respiratory effort, lungs clear to auscultation Cardiovascular: Rate/Rhythm: regular rate and regular rhythm Vessels: normal peripheral pulses Extremities: no edema Gastrointestinal (Abdomen): normal bowel sounds, soft, nontender, no hepatosplenomegaly Musculoskeletal: no cyanosis or clubbing, extremities motor strength 5/5 Skin: no rashes, warm and dry Neurologic: moves all extremities (Strength strong and equal throughout all extremities) and awake Speech / Cognition: + expressive aphasia Cranial Nerves: PERRL, EOM intact bilaterally and normal facial strength Coordination: + abnormal [id number] test (Mild difficulty with left upper extremity) Psychiatric: A+Ox3, euthymic affect Principal Diagnosis Expressive aphasia likely secondary to complex migraine Discharge Exam Pt left AMA the same evening Discharge Data Allergies Allergy/AdvReac Type Severity Reaction Status Date / Time No Known Allergies Allergy Unverified 07/11/21 12:31 Consultations 07/11/21 14:05 ED Decision to Admit Stat 07/11/21 17:45 Consult Neurology Routine Ordered Studies 07/11/21 11:20 CT angio head w con Stat CT angio neck with con Stat CT head/brain wo con Stat 07/11/21 14:55 MR brain wo con Routine Hospital Course (1) Expressive aphasia: -Admitted to telemetry -Patient presenting with reports of difficulty speaking and writing sentences, symptoms began yesterday -In the ED, head CT, head and neck CTAs unremarkable -Brain MRI - unremarkable -UA is suggestive of UTI however patient's presenting symptoms would be unusual for a UTI for someone her age -echo ordered -Full dose aspirin on admission, followed by ASA 81 mg daily; consider statin pending brain MRI results -May be due to complex migraine -Neurology consult, case discussed with Susana Tinoco PA-C - urine tox negative - vit B1 low, vit B12 low/ normal - TSH slightly elevated - results not discussed w/ the pt as pt left AMA in the evening after her admission (2) UTI (urinary tract infection): -Patient denies any urinary symptoms, may be asymptomatic bacteriuria -Afebrile, no leukocytosis -S/p ceftriaxone in the ED, will continue, follow culture (3) DVT prophylaxis: -SCDs Total Time Total Time Spent Total Time Spent (In Minutes): 0 Discharge Plan Discharge Items Patient Disposition: Against Medical Advice Reason For Visit: STROKE LIKE SYMPTOMS, UTI Discharge Diagnosis: stroke like symptoms, uti Condition on Discharge: Fair Activity: As commented below Activity Comment: signed out ama Non-emergency contact: Primary Care Provider Call non-emergency contact if: your symptoms worsen Follow-up/Referrals: PCP,NO [Primary Care Provider] - Diet: Other - See Diet Comment Diet Comment: AMMarty Addtl Attending Provider Instructions: signed out AMA. aware and ok with it Pending Studies at Discharge: No Stand-Alone Forms: My Struq, Smoking Cessation Medications and DC Order Prescriptions: No Action No Known Home Medications RF: 0 Discharge Orders: Left Against Medical Advice (Routine); Ordered 07/11/21 Ordered By: Parish Small Admission Data Admit Date/Time: 07/11/21 14:49 Attending Provider: Eamon Hirsch Admit Provider: Eamon Hirsch Primary Care Provider: PCP,NO Other Providers: Joy Fisher I. ; Colin Herman
== END 2021-07-11 22:30 | disposition left against medical advice (07) ==
LOC: EDINP 10:49 → ED 10:49 → 2S 19:47